=== PATIENT | male | born 1960 | race Two or more races ===

== ENCOUNTER → 2020-03-29 | Emergency (ER) | payer MEDICAID ==
[~2020-03-29] VITALS: Ht 185.4 cm; Wt 102.5 kg
[~2020-03-29] MED LIST: SODIUM CHLORIDE 0.9% 1,000 ML IV ONE
[2020-03-29 11:54] LABS: Chloride 102 mmol/L (98-107); Potassium 3.6 mmol/L (3.5-5.1); Sodium 135 mmol/L (136-145)
[2020-03-29 11:58] LABS: Basophils # (auto) 0.1 10 ^3/uL (0-0.2); Basophils % (auto) 0.9 % (0.0-2.0); Eosinophils # (auto) 0.2 10 ^3/uL (0-0.8); Eosinophils % (auto) 2.3 % (0.0-7.0); Hemoglobin 16.8 g/dL (13.5-17.5); Lymphocytes # (auto) 2.8 10 ^3/uL (0.4-5.4); Lymphocytes % (auto) 26.2 % (10.0-50.0); Mean Corpuscular Hemoglobin 30.5 pg (28.0-32.0); Mean Corpuscular Volume 92.4 fL (80.0-100.0); Monocytes # (auto) 0.7 10 ^3/uL (0-1.3); Monocytes % (auto) 6.6 % (0.0-12.0); Neutrophils # (auto) 6.9 10 ^3/uL (1.6-8.6); Nucleated Red Blood Cells % 0.1 %; Platelet Count (auto) 326 10^3/uL (140-450); Red Blood Cells 5.52 10^6/uL (4.5-5.90); Red Cell Distribution Width 14.3 % (11.8-14.3); White Blood Cell 10.7 10^3/uL (4.4-10.8)
[2020-03-29 12:07] LABS: Alanine Aminotransferase 18 U/L (16-61); Alkaline Phosphatase 77 U/L (45-117); Anion Gap 8 (5-15); Aspartate Aminotransferase 10 U/L (15-37); BUN/Creatinine Ratio 13.6; Bilirubin, Total 0.4 mg/dL (0.2-1.0); Blood Urea Nitrogen 11 mg/dL (7-18); Carbon Dioxide 25 mmol/L (21-32); GFR African American 126 mL/min; GFR Non-African American 104 mL/min; Glucose 193 mg/dL (74-106); Total Protein 8.3 g/dL (6.4-8.2)
[2020-03-29 13:00] VITALS: BP 151/88
[2020-03-29 13:55] LABS: Urine Bacteria NONE SEEN /hpf (None Seen); Urine Blood Negative /uL (Negative); Urine Mucus FEW (None Seen); Urine Specific Gravity 1.021 (1.001-1.035); Urine WBC 2 /hpf (0 - 3)
== END | disposition home or self-care (01) ==
LOC: ER 10:40
DX: T78.40XA Allergy, unspecified, initial encounter (principal); E11.9 Type 2 diabetes mellitus without complications; I10 Essential (primary) hypertension; E78.5 Hyperlipidemia, unspecified; Z86.73 Personal history of transient ischemic attack (TIA), and cerebral infarction without residual deficits; Z87.898 Personal history of other specified conditions
CPT/HCPCS: 36415; 70450; 71046; 80053; 81001; 83735; 84443; 84484; 85025; 93005; 96360

== ENCOUNTER 2022-01-21 06:35 | Emergency (ER) | payer MEDICAID ==
[~2022-01-21] VITALS: Ht 185.4 cm; Wt 115.2 kg
[2022-01-21] MEDS ORDERED: ACETAMINOPHEN/CODEINE#3 (300/30mg) TAB PO ONE (07:45)
[2022-01-21] MEDS ORDERED: cefTRIAXone 1GM/50ML D5W 50 ML IV ONE (07:45)
[2022-01-21] MEDS ORDERED: SODIUM CHLORIDE 0.9% 1,000 ML IV ONE (07:45)
[2022-01-21] MEDS ORDERED: ONDANSETRON ODT 4 MG TAB PO ONE (07:45)
[2022-01-21 07:50] LABS: Urine Bacteria NONE SEEN /hpf (None Seen); Urine Blood Negative /uL (Negative); Urine Specific Gravity 1.029 (1.001-1.035); Urine WBC 64 /hpf (0 - 3)
[2022-01-21 07:52] LABS: Basophils # (auto) 0.1 10 ^3/uL (0-0.2); Basophils % (auto) 0.4 % (0.0-2.0); Eosinophils # (auto) 0 10 ^3/uL (0-0.8); Eosinophils % (auto) 0.1 % (0.0-7.0); Hematocrit 46.3 % (41.0-53.0); Hemoglobin 15.3 g/dL (13.5-17.5); Lymphocytes # (auto) 1.3 10 ^3/uL (0.4-5.4); Lymphocytes % (auto) 6.3 % (10.0-50.0); Mean Corpuscular Hemoglobin 29.8 pg (28.0-32.0); Mean Corpuscular Hgb Conc. 33.2 g/dL (32.0-36.0); Mean Corpuscular Volume 89.8 fL (80.0-100.0); Monocytes # (auto) 1.4 10 ^3/uL (0-1.3); Monocytes % (auto) 6.4 % (0.0-12.0); Neutrophils # (auto) 18.5 10 ^3/uL (1.6-8.6); Neutrophils % (auto) 86.8 % (37.0-80.0); Red Blood Cells 5.15 10^6/uL (4.5-5.90); Red Cell Distribution Width 13.7 % (11.8-14.3); White Blood Cell 21.3 10^3/uL (4.4-10.8)
[2022-01-21 09:02] LABS: Albumin 3.5 g/dL (3.4-5.0); BUN/Creatinine Ratio 10.7; Calcium 9.1 mg/dL (8.5-10.1); Potassium 3.8 mmol/L (3.5-5.1)
[2022-01-21 09:04] LABS: Bilirubin, Total 0.7 mg/dL (0.2-1.0); Total Protein 7.7 g/dL (6.4-8.2)
[2022-01-21 09:40] VITALS: BP 124/72
[2022-01-21] MEDS ORDERED: ACET-1158 PO (10:00)
[2022-01-21] MEDS ORDERED: SULF800T7 PO (10:00)
[2022-01-21] MEDS ORDERED: METF-372 PO (10:00)
== END 2022-01-21 10:22 | disposition home or self-care (01) ==
LOC: ER 06:35
DX: N39.0 Urinary tract infection, site not specified (principal); E11.65 Type 2 diabetes mellitus with hyperglycemia; I10 Essential (primary) hypertension; E78.5 Hyperlipidemia, unspecified; Z86.73 Personal history of transient ischemic attack (TIA), and cerebral infarction without residual deficits
CPT/HCPCS: 36415; 80053; 81001; 83605; 85025; 96365; 99284; J0696; J7030; Q0162

== ENCOUNTER 2024-03-07 15:00 | Emergency (ER) | payer MEDICAID, OTHER ==
[~2024-03-07] VITALS: Ht 185.4 cm; Wt 114.2 kg
[~2024-03-07 15:00] MED LIST changes: +ACET500T58 PO; +METF-372 PO; -SODIUM CHLORIDE 0.9% 1,000 ML IV ONE; +SULF800T23 PO
[2024-03-07 16:22] LABS: Basophils # (auto) 0.1 10 ^3/uL (0-0.2); Basophils % (auto) 0.7 % (0.0-2.0); Eosinophils # (auto) 0.3 10 ^3/uL (0-0.8); Hematocrit 41.7 % (41.0-53.0); Lymphocytes # (auto) 1.9 10 ^3/uL (0.4-5.4); Lymphocytes % (auto) 16.4 % (10.0-50.0); Mean Corpuscular Hgb Conc. 33.6 g/dL (32.0-36.0); Mean Corpuscular Volume 89.2 fL (80.0-100.0); Monocytes # (auto) 1.3 10 ^3/uL (0-1.3); Monocytes % (auto) 11.1 % (0.0-12.0); Neutrophils % (auto) 68.8 % (37.0-80.0); Nucleated Red Blood Cells % 0.1 %; Platelet Count (auto) 308 10^3/uL (140-450); Red Blood Cells 4.68 10^6/uL (4.5-5.90); White Blood Cell 11.6 10^3/uL (4.4-10.8)
[2024-03-07 16:37] LABS: Alanine Aminotransferase 67 U/L (7-40); Alkaline Phosphatase 136 U/L (46-116); Anion Gap 8 (5-15); Aspartate Aminotransferase 33 U/L (13-40); BUN/Creatinine Ratio 15.8 (10.0-20.0); Blood Urea Nitrogen 16 mg/dL (9-23); Calcium 8.8 mg/dL (8.7-10.4); Carbon Dioxide 24 mmol/L (20-30); Chloride 99 mmol/L (98-107); Glucose 337 mg/dL (74-106); Lipase 35 U/L (12-53); Potassium 3.8 mmol/L (3.5-5.1); Sodium 131 mmol/L (136-145)
[2024-03-07 16:38] LABS: Bilirubin, Total 0.5 mg/dL (0.2-1.0); Total Protein 6.6 g/dL (5.7-8.2)
[2024-03-07 17:34] VITALS: BP 148/78; PULSE 79; RESP 16; TEMP 98.7; O2SAT 94
[2024-03-07] MEDS: SODIUM CHLORIDE 0.9% 1,000 ML IV ONE (17:52)
[2024-03-07] MEDS: ONDANSETRON ODT 4 MG TAB PO ONE (17:52)
[2024-03-07] MEDS: LACTULOSE 20Gm/30ML SOLN PO ONE (18:41)
[2024-03-07] MEDS ORDERED: ZOFR4T PO (19:44)
[2024-03-07] MEDS ORDERED: LACT10SO3 PO (19:44)
[2024-03-07] MEDS ORDERED: AZIT500T66 PO (19:44)
[2024-03-07] MEDS: AZITHROMYCIN 250 MG TAB PO ONE (20:06)
== END 2024-03-07 20:08 | disposition home or self-care (01) ==
LOC: ER 15:00
DX: J18.9 Pneumonia, unspecified organism (principal); K59.00 Constipation, unspecified; I10 Essential (primary) hypertension; E78.5 Hyperlipidemia, unspecified; E11.9 Type 2 diabetes mellitus without complications; E66.01 Morbid (severe) obesity due to excess calories; Z68.33 Body mass index [BMI] 33.0-33.9, adult; Z86.73 Personal history of transient ischemic attack (TIA), and cerebral infarction without residual deficits; Z79.899 Other long term (current) drug therapy
CPT/HCPCS: 36415; 74176; 80053; 82962; 83605; 83690; 84484; 85025; 96360; 99284; J7030; Q0162

== ENCOUNTER 2024-03-21 12:35 | Inpatient (IN) | payer OTHER ==
[~2024-03-21] VITALS: Ht 185.4 cm; Wt 118.0 kg
[~2024-03-21 12:35] MED LIST changes: +AZIT500T66 PO; +LACT10SO3 PO; +ZOFR4T PO
[2024-03-21 16:29] LABS: Urine Blood 3+ /uL (Negative); Urine Clarity Ex.Turbid (Clear); Urine Color Red (Yellow); Urine Protein, UAD 1+ (Negative); Urine Specific Gravity 1.024 (1.001-1.035); Urine Urobilinogen Normal (Negative)
[2024-03-21 17:39] LABS: Basophils # (auto) 0.1 10 ^3/uL (0-0.2); Basophils % (auto) 1.1 % (0.0-2.0); Eosinophils # (auto) 0.6 10 ^3/uL (0-0.8); Eosinophils % (auto) 5.8 % (0.0-7.0); Hematocrit 43.3 % (41.0-53.0); Lymphocytes # (auto) 2.4 10 ^3/uL (0.4-5.4); Mean Corpuscular Hemoglobin 31.5 pg (28.0-32.0); Mean Corpuscular Hgb Conc. 34.7 g/dL (32.0-36.0); Mean Corpuscular Volume 90.8 fL (80.0-100.0); Monocytes # (auto) 0.7 10 ^3/uL (0-1.3); Monocytes % (auto) 6.8 % (0.0-12.0); Neutrophils # (auto) 6.2 10 ^3/uL (1.6-8.6); Neutrophils % (auto) 62.3 % (37.0-80.0); Nucleated Red Blood Cells % 0.1 %; Platelet Count (auto) 393 10^3/uL (140-450); Red Blood Cells 4.77 10^6/uL (4.5-5.90); Red Cell Distribution Width 15.2 % (11.8-14.3)
[2024-03-21 17:56] LABS: Alanine Aminotransferase 23 U/L (7-40); Albumin 4.3 g/dL (3.2-4.8); Alkaline Phosphatase 110 U/L (46-116); Anion Gap 7 (5-15); Aspartate Aminotransferase 12 U/L (13-40); BUN/Creatinine Ratio 14.7 (10.0-20.0); Blood Urea Nitrogen 15 mg/dL (9-23); Calcium 9.2 mg/dL (8.7-10.4); Carbon Dioxide 22 mmol/L (20-30); Chloride 105 mmol/L (98-107); Glucose 363 mg/dL (74-106); Potassium 4.2 mmol/L (3.5-5.1); Sodium 134 mmol/L (136-145)
[2024-03-21 17:57] LABS: Bilirubin, Total 0.4 mg/dL (0.2-1.0); Total Protein 7.6 g/dL (5.7-8.2)
[2024-03-21] MEDS ORDERED: CEPH250C PO (18:05)
[2024-03-21 18:31] VITALS: PULSE 90; RESP 16; O2SAT 98
[2024-03-21] MEDS ORDERED: ONDANSETRON HCL 4 MG/2 ML VIAL IV PRN (19:30)
[2024-03-21] MEDS ORDERED: DOCUSATE SOD 100 MG CAP PO PRN (19:30)
[2024-03-21] MEDS ORDERED: NITROGLYCERIN 0.4 MG SL TAB SL PRN (19:30)
[2024-03-21] MEDS ORDERED: DEXTROSE (50%) 50ML SYRG IV PRN (19:30)
[2024-03-21] MEDS ORDERED: MORPHINE SULFATE INJ 2 MG/ml SYRG IV PRN (19:30)
[2024-03-21 21:18] VITALS: BP 131/77; PULSE 79; RESP 18; TEMP 98; O2SAT 97
[2024-03-21] MEDS ORDERED: ATOR40TA52 PO (21:18)
[2024-03-21] MEDS ORDERED: DOCU-265 PO (21:18)
[2024-03-21] MEDS: cefTRIAXone 1GM/50ML D5W 50 ML IV ONE (21:59)
[2024-03-21] MEDS: SODIUM CHLORIDE 0.9% 1,000 ML IV SCH (22:01)
[2024-03-21] MEDS: ACCU-CHEK COMFORT CURVE STRIP VI SCH (22:10)
[2024-03-21] MEDS: InsuLIN REG 1unit/0.01ml Soln (100units/ml) SC SCH (22:13)
[2024-03-21 22:54] VITALS: BP 131/77; PULSE 79; RESP 18; TEMP 98; O2SAT 97
[2024-03-21] MEDS: MELATONIN 5 MG TAB PO ONE (22:59)
[2024-03-22 01:00] VITALS: BP 122/74; PULSE 78; RESP 20; TEMP 98.2; O2SAT 94
[2024-03-22 05:00] VITALS: BP 141/80; PULSE 84; RESP 18; TEMP 98.1; O2SAT 96
[2024-03-22 06:32] LABS: Basophils # (auto) 0.1 10 ^3/uL (0-0.2); Basophils % (auto) 0.6 % (0.0-2.0); Eosinophils # (auto) 0.6 10 ^3/uL (0-0.8); Eosinophils % (auto) 4.2 % (0.0-7.0); Hematocrit 39.9 % (41.0-53.0); Hemoglobin 13.8 g/dL (13.5-17.5); Lymphocytes % (auto) 14.4 % (10.0-50.0); Mean Corpuscular Hemoglobin 31.4 pg (28.0-32.0); Mean Corpuscular Hgb Conc. 34.6 g/dL (32.0-36.0); Mean Corpuscular Volume 90.6 fL (80.0-100.0); Monocytes % (auto) 7.3 % (0.0-12.0); Neutrophils # (auto) 10.1 10 ^3/uL (1.6-8.6); Neutrophils % (auto) 73.5 % (37.0-80.0); Platelet Count (auto) 348 10^3/uL (140-450); Red Cell Distribution Width 15.5 % (11.8-14.3); White Blood Cell 13.7 10^3/uL (4.4-10.8)
[2024-03-22 06:47] LABS: Alanine Aminotransferase 22 U/L (7-40); Albumin 3.7 g/dL (3.2-4.8); Alkaline Phosphatase 97 U/L (46-116); Anion Gap 6 (5-15); BUN/Creatinine Ratio 13.6 (10.0-20.0); Blood Urea Nitrogen 11 mg/dL (9-23); Calcium 8.9 mg/dL (8.7-10.4); Carbon Dioxide 22 mmol/L (20-30); Chloride 107 mmol/L (98-107); Potassium 3.9 mmol/L (3.5-5.1); Sodium 135 mmol/L (136-145)
[2024-03-22 06:48] LABS: Aspartate Aminotransferase 11 U/L (13-40); Bilirubin, Total 0.6 mg/dL (0.2-1.0); Total Protein 6.8 g/dL (5.7-8.2)
[2024-03-22 06:54] LABS: Glucose 250 mg/dL (74-106)
[2024-03-22 09:00] VITALS: BP 164/84; PULSE 90; RESP 21; TEMP 98.5; O2SAT 96
[2024-03-22 13:00] VITALS: BP 148/76; PULSE 89; RESP 17; TEMP 98.9; O2SAT 95
[2024-03-22 16:57] VITALS: BP 137/73; PULSE 97; RESP 20; TEMP 99.2; O2SAT 93
[2024-03-22] MEDS: TAMSULOSIN HYDROCHLORIDE 0.4 MG CAP PO SCH (18:06)
[2024-03-22] MEDS: LOSARTAN POTASSIUM 50 MG TAB PO SCH (18:06)
[2024-03-22] MEDS: metFORMIN HYDROCHLORIDE 500 MG TAB PO SCH (18:07)
[2024-03-22 21:00] VITALS: BP 140/68; PULSE 94; RESP 17; TEMP 100.9; O2SAT 94
[2024-03-22] MEDS: cefTRIAXone 1GM/50ML D5W 50 ML IV SCH (21:07)
[2024-03-22] MEDS: OXYBUTYNIN CHL 5 MG TAB PO SCH (21:07)
[2024-03-22] MEDS: ATORVASTATIN 20 MG TAB PO SCH (21:08)
[2024-03-22] MEDS: MELATONIN 5 MG TAB PO ONE (22:27)
[2024-03-23 01:24] VITALS: BP 122/55; PULSE 87; RESP 18; TEMP 98.4; O2SAT 96
[2024-03-23 05:00] VITALS: BP_SYST 117; BP_SYST 119; BP_DIAS 58; BP_DIAS 62; PULSE 64; PULSE 73; RESP 17; RESP 18; TEMP 98.5; TEMP 99.1; O2SAT 94; O2SAT 96
[2024-03-23] MEDS: PANTOPRAZOLE 40 MG TAB PO SCH (05:01)
[2024-03-23 08:31] VITALS: BP 137/67; PULSE 61; RESP 16; TEMP 98.7; O2SAT 95
[2024-03-23 12:59] VITALS: BP 150/78; PULSE 86; RESP 16; TEMP 98.3; O2SAT 97
[2024-03-23 15:51] LABS: Basophils # (auto) 0.1 10 ^3/uL (0-0.2); Basophils % (auto) 0.7 % (0.0-2.0); Eosinophils # (auto) 0.1 10 ^3/uL (0-0.8); Eosinophils % (auto) 0.7 % (0.0-7.0); Hematocrit 38.8 % (41.0-53.0); Hemoglobin 13.1 g/dL (13.5-17.5); Lymphocytes # (auto) 2.1 10 ^3/uL (0.4-5.4); Lymphocytes % (auto) 11.4 % (10.0-50.0); Mean Corpuscular Hemoglobin 30.7 pg (28.0-32.0); Mean Corpuscular Hgb Conc. 33.9 g/dL (32.0-36.0); Mean Corpuscular Volume 90.6 fL (80.0-100.0); Monocytes # (auto) 1.3 10 ^3/uL (0-1.3); Monocytes % (auto) 7.2 % (0.0-12.0); Neutrophils # (auto) 14.9 10 ^3/uL (1.6-8.6); Platelet Count (auto) 301 10^3/uL (140-450); Red Blood Cells 4.28 10^6/uL (4.5-5.90); Red Cell Distribution Width 15.4 % (11.8-14.3); White Blood Cell 18.6 10^3/uL (4.4-10.8)
[2024-03-23 16:10] LABS: Chloride 105 mmol/L (98-107); Potassium 3.7 mmol/L (3.5-5.1)
[2024-03-23 16:11] LABS: Anion Gap 8 (5-15); Calcium 8.6 mg/dL (8.7-10.4); Carbon Dioxide 17 mmol/L (20-30)
[2024-03-23 16:16] LABS: BUN/Creatinine Ratio 9.1 (10.0-20.0); Blood Urea Nitrogen 6 mg/dL (9-23); Glucose 198 mg/dL (74-106)
[2024-03-23 16:22] LABS: Sodium 130 mmol/L (136-145)
[2024-03-23 16:29] VITALS: BP 141/70; PULSE 88; RESP 16; TEMP 98; O2SAT 96
[2024-03-23 19:41] LABS: Urine Bacteria None Seen /hpf (None Seen)
[2024-03-23 20:08] LABS: Urine Blood Negative /uL (Negative); Urine Clarity Clear (Clear); Urine Color Light-Yellow (Yellow); Urine Protein, UAD TRACE (Negative); Urine Specific Gravity 1.011 (1.001-1.035); Urine Urobilinogen Normal (Negative); Urine WBC 3 /hpf (0 - 3); Urine pH 6.5 (5.0-9.0)
[2024-03-23 21:00] VITALS: BP 122/53; PULSE 88; RESP 18; TEMP 97.9; O2SAT 93
[2024-03-23] MEDS: MELATONIN 5 MG TAB PO ONE (23:59)
[2024-03-24 01:00] VITALS: BP 102/54; PULSE 81; RESP 20; TEMP 98.1; O2SAT 95
[2024-03-24 05:00] VITALS: BP_SYST 112; BP_SYST 128; BP_DIAS 6; BP_DIAS 73; PULSE 84; RESP 20; TEMP 97.8; TEMP 97.9; O2SAT 95; O2SAT 97
[2024-03-24 08:00] VITALS: PULSE 123; RESP 16
[2024-03-24 08:54] VITALS: BP 107/61; PULSE 81; RESP 16; TEMP 98.3; O2SAT 96
[2024-03-24 12:06] LABS: PSA Free 15.1 ng/mL; Prostate Specific Antigen 33.3 ng/mL (0.0-4.0)
== END 2024-03-24 08:50 | disposition left against medical advice (07) | DRG 463 ==
LOC: ER 12:35 → CENTRAL 19:24 → OVERFLOW 19:24 → CENTRAL 21:12
PROVIDERS: ADMIT Nurse Practitioner Family; ATTEND Nurse Practitioner
DX: N30.01 Acute cystitis with hematuria (principal); E11.65 Type 2 diabetes mellitus with hyperglycemia; I10 Essential (primary) hypertension; Z53.29 Procedure and treatment not carried out because of patient's decision for other reasons; E78.5 Hyperlipidemia, unspecified; E66.9 Obesity, unspecified; Z86.73 Personal history of transient ischemic attack (TIA), and cerebral infarction without residual deficits; Z68.34 Body mass index [BMI] 34.0-34.9, adult; Z79.899 Other long term (current) drug therapy; Z79.4 Long term (current) use of insulin
CPT/HCPCS: 36415; 76775; 80048; 80053; 81001; 81003; 82962; 83036; 84154; 85025; 87081; 87086; G0378; J1815